=== PATIENT | male | born 1970 | race African-American/Black ===

== ENCOUNTER 2018-05-08 08:02 | Emergency (ER) | payer OTHER ==
[~2018-05-08] VITALS: Ht 182.9 cm; Wt 79.1 kg
[2018-05-08 10:25] VITALS: BP 102/65
== END 2018-05-08 10:59 | disposition home or self-care (01) ==
LOC: EMS 08:03
DX: M20.012 Mallet finger of left finger(s) (principal); M79.672 Pain in left foot; M79.89 Other specified soft tissue disorders; F17.210 Nicotine dependence, cigarettes, uncomplicated

== ENCOUNTER 2018-08-15 09:50 | Emergency (ER) | payer OTHER ==
[~2018-08-15] VITALS: Ht 183.5 cm; Wt 80.0 kg
[2018-08-15] MEDS ORDERED: KETOROLAC TROMETHAMINE 60 MG/2 ML VIAL IM ONE (12:30)
[2018-08-15 14:00] VITALS: BP 101/69
== END 2018-08-15 14:20 | disposition home or self-care (01) ==
LOC: EMS 09:52
DX: M70.72 Other bursitis of hip, left hip (principal); F17.210 Nicotine dependence, cigarettes, uncomplicated
CPT/HCPCS: 73503; 96372; 99283; 99406; J1885

== ENCOUNTER 2021-02-11 10:54 | Emergency (ER) | payer OTHER ==
[~2021-02-11] VITALS: Ht 182.9 cm; Wt 80.5 kg
[2021-02-11 12:20] LABS: COVID AG,FIA SOURCE NASOPHARYNGEAL
[2021-02-11 12:44] LABS: INFLUENZA TYPE A NEGATIVE FOR TYPE A (NEGATIVE); INFLUENZA TYPE B NEGATIVE FOR TYPE B (NEGATIVE)
[2021-02-11 13:19] VITALS: BP 108/70
== END 2021-02-11 14:07 | disposition home or self-care (01) ==
LOC: EMS 11:00
DX: R09.81 Nasal congestion (principal); F12.90 Cannabis use, unspecified, uncomplicated; F17.210 Nicotine dependence, cigarettes, uncomplicated; Z20.822 Contact with and (suspected) exposure to COVID-19
CPT/HCPCS: 71045; 87426; 87804; 99284; U0003

== ENCOUNTER 2021-06-27 18:09 | Emergency (ER) | payer MEDICAID, OTHER ==
[~2021-06-27] VITALS: Ht 182.9 cm; Wt 77.3 kg
[2021-06-27] MEDS ORDERED: KETOROLAC TROMETHAMINE 30 MG/ML VIAL IVP ONE (18:30)
[2021-06-27] MEDS ORDERED: SODIUM CHLORIDE 0.9% 1,000 ML IV ONE (18:30)
[2021-06-27 18:38] LABS: BASOPHILS % (AUTO) 0.8 % (0.0-2.0); EOSINOPHILS % (AUTO) 1.4 % (1.0-6.0); HEMATOCRIT 40.1 % (41-53); HEMOGLOBIN 13.4 g/dL (13.5-17.5); LYMPHOCYTES # (AUTO) 1.5 K/uL (1.0-4.8); LYMPHOCYTES % (AUTO) 16.1 % (22.0-44.0); MEAN CORPUSCULAR HEMOGLOBIN 33.5 pg (26.0-34.0); MEAN CORPUSCULAR HGB CONC 33.4 G/dL (31.0-37.0); MEAN CORPUSCULAR VOLUME 100 fL (80-100); MONOCYTES # (AUTO) 1.3 K/uL (0.1-1.0); MONOCYTES % (AUTO) 13.9 % (2.0-9.0); NEUTROPHILS # (AUTO) 6.2 K/uL (1.8-7.7); NEUTROPHILS % (AUTO) 67.8 % (40.0-70.0); PLATELET COUNT (AUTO) 240 K/uL (150-450); RED CELL DISTRIBUTION WIDTH 15.5 % (11.5-14.5)
[2021-06-27 18:46] LABS: ANION GAP 10 mmol/L (8-16); CARBON DIOXIDE 25 mmol/L (22-29); CHLORIDE 101 mmol/L (98-107); CREATININE 1.12 mg/dL (0.60-1.30); GLOMERULAR FILTR. RATE CALC > 60 mL/min (>60); GLUCOSE,RANDOM 97 mg/dL (70-110); POTASSIUM 3.5 mmol/L (3.5-5.1); SODIUM SERUM 136 mmol/L (136-145); UREA NITROGEN, BLOOD 7 mg/dL (7-18)
[2021-06-27] MEDS ORDERED: IBUP-2070 PO (19:58)
[2021-06-27 20:13] VITALS: BP 115/73
== END 2021-06-27 21:08 | disposition home or self-care (01) ==
LOC: EMS 18:09
DX: R55 Syncope and collapse (principal); M70.72 Other bursitis of hip, left hip; F17.210 Nicotine dependence, cigarettes, uncomplicated; F12.90 Cannabis use, unspecified, uncomplicated; Z98.890 Other specified postprocedural states; Y93.89 Activity, other specified
CPT/HCPCS: 36415; 71045; 73503; 80048; 85025; 93005; 96361; 96374; 99285; J1885; J7030

== ENCOUNTER 2023-08-23 19:54 | Emergency (ER) | payer MEDICAID ==
[~2023-08-23] VITALS: Ht 182.9 cm; Wt 83.6 kg
[~2023-08-23 19:54] MED LIST: IBUP-1492 PO
[2023-08-23 20:01] VITALS: TEMP 99
[2023-08-23 20:38] LABS: BASOPHILS % (AUTO) 0.3 % (0.0-2.0); EOSINOPHILS % (AUTO) 0.8 % (1.0-6.0); HEMATOCRIT 32.8 % (41-53); LYMPHOCYTES # (AUTO) 0.9 K/uL (1.0-4.8); LYMPHOCYTES % (AUTO) 8.7 % (22.0-44.0); MEAN CORPUSCULAR HEMOGLOBIN 23.2 pg (26.0-34.0); MEAN CORPUSCULAR HGB CONC 30.6 G/dL (31.0-37.0); MEAN CORPUSCULAR VOLUME 76 fL (80-100); MONOCYTES # (AUTO) 1.3 K/uL (0.1-1.0); MONOCYTES % (AUTO) 11.8 % (2.0-9.0); NEUTROPHILS # (AUTO) 8.4 K/uL (1.8-7.7); NEUTROPHILS % (AUTO) 78.4 % (40.0-70.0); PLATELET COUNT (AUTO) 352 K/uL (150-450); RED BLOOD CELL COUNT(AUTO) 4.32 MIL/uL (4.50-5.90); WHITE BLOOD COUNT (AUTO) 10.7 K/uL (4.5-11.0)
[2023-08-23 20:51] LABS: ANION GAP 10 mmol/L (8-16); CALCIUM, TOTAL 9.2 mg/dL (8.8-10.5); CARBON DIOXIDE 27 mmol/L (22-29); CHLORIDE 100 mmol/L (98-107); CREATININE 1.16 mg/dL (0.60-1.30); GLOMERULAR FILTR. RATE CALC > 60 mL/min (>60); GLUCOSE,RANDOM 119 mg/dL (70-110); POTASSIUM 3.8 mmol/L (3.5-5.1); SODIUM SERUM 137 mmol/L (136-145); UREA NITROGEN, BLOOD 9 mg/dL (7-18)
[2023-08-23 20:59] LABS: TROPONIN I-HIGH SENSITIVITY 4 ng/L (<76)
[2023-08-23 21:24] VITALS: BP 122/68; PULSE 83; RESP 20
[2023-08-23] MEDS ORDERED: METH-812 PO (22:36)
[2023-08-23] MEDS ORDERED: IBUP-1492 PO (22:36)
[2023-08-23 22:37] LABS: INFLUENZA A-RTPCR,COMBO NEGATIVE (NEGATIVE); INFLUENZA B-RTPCR,COMBO NEGATIVE (NEGATIVE); RESPIRATORY SYNCYTIAL VRS-PCR NEGATIVE (NEGATIVE); SARS COVID19 RTPCR, COMBO NEGATIVE (NEGATIVE)
[2023-08-23] MEDS: KETOROLAC TROMETHAMINE 60 MG/2 ML VIAL IM ONE (22:43)
[2023-08-23] MEDS: METHOCARBAMOL 500 MG TABLET PO ONE (22:44)
== END 2023-08-23 23:00 | disposition home or self-care (01) ==
LOC: EMS 19:54
DX: R07.89 Other chest pain (principal); F17.210 Nicotine dependence, cigarettes, uncomplicated; F12.90 Cannabis use, unspecified, uncomplicated; Z98.890 Other specified postprocedural states; Z20.822 Contact with and (suspected) exposure to COVID-19
CPT/HCPCS: 99285; 0241U; 71045; 80048; 84484; 85025; 36415; 93005; 96372; J1885

== ENCOUNTER 2023-09-11 05:21 | Emergency (ER) | payer MEDICAID ==
[~2023-09-11] VITALS: Ht 182.9 cm; Wt 80.5 kg
[~2023-09-11 05:21] MED LIST changes: +METH-812 PO
[2023-09-11 05:35] VITALS: TEMP 98.1
[2023-09-11] MEDS: METHOCARBAMOL 500 MG TABLET PO ONE (06:29)
[2023-09-11] MEDS: KETOROLAC TROMETHAMINE 60 MG/2 ML VIAL IM ONE (06:36)
[2023-09-11 06:49] VITALS: BP 111/69; PULSE 71; RESP 16
[2023-09-11] MEDS ORDERED: TRAM50TA5 PO (08:45)
[2023-09-11] MEDS ORDERED: METH-812 PO (08:45)
[2023-09-11] MEDS ORDERED: IBUP-1554 PO (08:45)
== END 2023-09-11 09:04 | disposition home or self-care (01) ==
LOC: EMS 05:23
DX: S13.4XXA Sprain of ligaments of cervical spine, initial encounter (principal); M62.830 Muscle spasm of back; F17.210 Nicotine dependence, cigarettes, uncomplicated; F12.90 Cannabis use, unspecified, uncomplicated; X58.XXXA Exposure to other specified factors, initial encounter; Y93.89 Activity, other specified; Y92.89 Other specified places as the place of occurrence of the external cause; Y99.8 Other external cause status
CPT/HCPCS: 99284; 72040; 72070; 96372; J1885

== ENCOUNTER 2024-10-18 18:08 | Emergency (ER) | payer MEDICAID ==
[~2024-10-18] VITALS: Ht 182.9 cm; Wt 80.4 kg
[~2024-10-18 18:08] MED LIST changes: +IBUP-1554 PO; +TRAM50TA5 PO
[2024-10-18] MEDS ORDERED: IBUP-1493 PO (19:00)
[2024-10-18] MEDS ORDERED: AMOX-457 PO (19:00)
[2024-10-18] MEDS ORDERED: HYDR-4062 PO (19:00)
[2024-10-18] MEDS: AMOX TR/POT CLAV 875 MG/125 MG TABLET PO ONE (19:23)
[2024-10-18] MEDS: IBUPROFEN 800 MG TABLET PO ONE (19:24)
[2024-10-18 19:32] VITALS: BP 122/79; PULSE 86; RESP 18; TEMP 98.2; O2SAT 99
== END 2024-10-18 20:07 | disposition home or self-care (01) ==
LOC: EMS 18:10
DX: K04.7 Periapical abscess without sinus (principal); F12.90 Cannabis use, unspecified, uncomplicated; F10.20 Alcohol dependence, uncomplicated; F17.210 Nicotine dependence, cigarettes, uncomplicated; Z98.890 Other specified postprocedural states; Z79.899 Other long term (current) drug therapy; Y90.9 Presence of alcohol in blood, level not specified
CPT/HCPCS: 99283